=== PATIENT | male | born 1970 | race Caucasian/White ===

== ENCOUNTER 2016-11-27 09:17 | Inpatient (IN) | payer OTHER ==
[2016-11-27 09:58] LABS: Hematocrit 36 % (42-52); Hemoglobin 12.1 g/dl (14.0-18.0); Mean Corpuscular HGB Conc 34 g/dl (31-36); Mean Corpuscular Hemoglobin 31 pg (27-31); Mean Corpuscular Volume 94 fL (80-94); Mean Platelet Volume 10 um3 (7.4-10.4); Red Blood Count 3.85 10^6/ul (4.0-5.4); Red Cell Distribution Width 13 % (10.5-15); White Blood Count 13.2 10^3/ul (3.5-10.8)
[2016-11-27 10:30] LABS: ALT 30 U/L (7-52); AST 64 U/L (13-39); Albumin 4.4 g/dL (3.2-5.2); Alkaline Phosphatase 65 U/L (34-104); BUN/Creatinine Ratio 17.1 (8-20); Blood Urea Nitrogen 24 mg/dL (6-24); CO2 Carbon Dioxide 22 mmol/L (22-32); Calcium 8.7 mg/dL (8.6-10.3); Chloride 87 mmol/L (101-111); EGFR African American 70.8 (>60); EGFR Non-African American 55.1 (>60); Globulin 2.5 g/dL (2-4); Glucose 458 mg/dL (70-100); Potassium 5.6 mmol/L (3.5-5.0); Total Protein 6.9 g/dL (6.4-8.9)
[2016-11-27 10:39] LABS: Acetaminophen < 15 mcg/mL; Alcohol < 10 mg/dL (<10); Salicylate < 2.50 mg/dL (<30)
[2016-11-27 10:41] LABS: Anion Gap 11 mmol/L (2-11); Sodium 120 mmol/L (133-145)
[2016-11-27] MEDS ORDERED: Insulin REGULAR(*) 1 UNITS UNIT IV PUSH ONE (10:46)
[2016-11-27] MEDS ORDERED: NS 0.9% 1000 ML* 1,000 ML IV ONE ×2 (10:47→14:45)
[2016-11-27 10:51] LABS: TSH (Thyroid Stimulating Horm) 1.71 mcIU/mL (0.34-5.60)
[2016-11-27] MEDS: NS 0.9% 1000 ML* 2,000 ML IV ONE ×2 (10:56→11:59)
[2016-11-27 12:34] LABS: Calcium 8.6 mg/dL (8.6-10.3); EGFR Non-African American 62.2 (>60); Globulin 2.5 g/dL (2-4); Potassium 3.9 mmol/L (3.5-5.0); Total Bilirubin 0.5 mg/dL (0.2-1.0); Total Protein 6.5 g/dL (6.4-8.9)
[2016-11-27 15:36] LABS: Urine Bacteria Absent (Absent); Urine Bilirubin Negative (Negative); Urine Glucose 3+(>=500 mg/dL) (Negative); Urine Nitrite Negative (Negative)
[2016-11-27 15:50] LABS: Benzodiazepine Urine Screen None Detected (None Detect)
--- NOTE | 2016-11-27 16:35 | ED ---
Martha Cartwright Alok, scribed for Adithya Anne MD on 11/27/16 at 0932 . Dizziness - HPI Summary HPI Summary: 46 y/o male presents to the ED from [facility] with dizziness and suspected opiate overdose. Pt denies drug use today and states he woke up after sleeping last night with dizziness described as a weakness. Pt is currently slightly dizzy and has no other complaints. Pt denies CP, SOB, and palpitations. PMHx includes DM, HLD and peripheral neuropathy. Pt smokes approximately between 1.5-2 ppd. - History Of Current Complaint Stated Complaint: POSS OVERDOSE Time Seen by Provider: 11/27/16 09:26 Hx Obtained From: Patient Onset/Duration: Still Present Timing: Hours Severity Initially: Moderate Severity Currently: Moderate Character: Weak, Dizzy Aggravating Factor(s): Nothing Alleviating Factor(s): Nothing Associated Signs And Symptoms: Negative: Chest Pain, SOB, Palpitations - Allergies/Home Medications Allergies/Adverse Reactions: Allergies Allergy/AdvReac Type Severity Reaction Status Date / Time Penicillins [PCN] Allergy Hives/Diff. Verified 11/27/16 09:35 Breathing/I tching Home Medications: Home Medications Aspirin EC Low Dose* [Ecotrin EC Low Dose 81 MG*] 81 mg PO DAILY 11/27/16 [ History Confirmed 11/27/16] Atorvastatin* [Lipitor*] 10 mg PO DAILY 11/27/16 [History Confirmed 11/27/16] Gabapentin TAB(NF) [Neurontin 600 mg TAB(NF)] 600 mg PO BID 11/27/16 [History Confirmed 11/27/16] Insulin GLARGINE(*) [Lantus(*)] 22 units SUBCUT BEDTIME 11/27/16 [History Confirmed 11/27/16] Levothyroxine TAB* [Synthroid TAB*] 250 mcg PO DAILY 11/27/16 [History Confirmed 11/27/16] Sitagliptin (NF) [Januvia (NF)] 50 mg PO DAILY 11/27/16 [History Confirmed 11/27] PMH/Surg Hx/FS Hx/Imm Hx Endocrine/Hematology History: Reports: Hx Diabetes Cardiovascular History: Reports: Hx Hypercholesterolemia Neurological History: Reports: Hx Peripheral Neuropathy - Family History Known Family History: Positive: Diabetes - Social History Occupation: Unemployed Hx Tobacco Use: Yes Smoking Status (MU): Heavy Every Day Tobacco Smoker Type: Cigarettes Cigarettes Packs Per Day: 2 Review of Systems Negative: Palpitations, Chest Pain Negative: Shortness Of Breath Neurological: Other - Dizziness Positive: Weakness All Other Systems Reviewed And Are Negative: Yes Physical Exam - Summary Physical Exam Summary: VITAL SIGNS: Reviewed. GENERAL: ~Patient is a well developed and nourished male who is lying comfortable in the stretcher. ~Patient is not in any acute respiratory distress. HEAD AND FACE: Normocephalic EYES: PERRLA, EOMI x 2. EARS: Hearing grossly intact. MOUTH: Oropharynx within normal limits. NECK: Supple, trachea is midline, no adenopathy, no JVD, no carotid bruit. CHEST: Symmetric, no tenderness at palpation LUNGS: Clear to auscultation bilaterally. No wheezing or crackles. CVS: Regular rate and rhythm, S1 and S2 present, no murmurs or gallops appreciated. ABDOMEN: Soft, non-tender. Bowel sounds are normal. No abdominal abnormal pulsations. EXTREMITIES: Full ROM in all major joints, no edema, no cyanosis or clubbing. NEURO: Alert and oriented x 3. No acute neurological deficits. Speech is normal and follows commands. SKIN: Dry and warm Triage Information Reviewed: Yes Vital Signs On Initial Exam: Vital Signs (72 hours) 11/27/16 11/27/16 11/27/16 09:27 09:30 09:33 Temperature 99.5 F Pulse Rate 103 85 Respiratory 17 Rate Blood Pressure 152/72 145/64 145/64 (mmHg) O2 Sat by Pulse 80 97 Oximetry 11/27/16 09:35 Temperature 99.5 F Pulse Rate 92 Respiratory 18 Rate Blood Pressure 145/64 (mmHg) O2 Sat by Pulse 97 Oximetry Vital Signs Reviewed: Yes Diagnostics - Vital Signs Vital Signs Temp Pulse Resp BP Pulse Ox 11/27/16 15:00 12 115/69 11/27/16 14:30 88 27 78/53 89 11/27/16 14:00 18 117/84 11/27/16 13:30 15 116/66 11/27/16 13:00 13 110/70 11/27/16 12:30 11 118/66 11/27/16 12:00 83 13 108/63 95 11/27/16 11:30 86 10 106/62 98 11/27/16 11:00 85 11 117/74 94 11/27/16 10:30 90 14 119/62 91 11/27/16 10:00 86 14 126/76 92 11/27/16 09:35 99.5 F 92 18 145/64 97 11/27/16 09:33 99.5 F 85 17 145/64 97 11/27/16 09:30 103 145/64 80 11/27/16 09:27 152/72 - Laboratory Lab Results: Lab Results 11/27/16 11/27/16 11/27/16 Range/Units 09:41 09:41 09:42 WBC 13.2 H (3.5-10.8) 10^3/ul RBC 3.85 L (4.0-5.4) 10^6/ul Hgb 12.1 L (14.0-18.0) g/dl Hct 36 L (42-52) % MCV 94 (80-94) fL MCH 31 (27-31) pg MCHC 34 (31-36) g/dl RDW 13 (10.5-15) % Plt Count 180 (150-450) 10^3/ul MPV 10 (7.4-10.4) um3 Neut % (Auto) 78.4 (38-83) % Lymph % (Auto) 10.3 L (25-47) % Broome % (Auto) 10.5 H (1-9) % Eos % (Auto) 0.1 (0-6) % Baso % (Auto) 0.7 (0-2) % Absolute Neuts (auto) 10.4 H (1.5-7.7) 10^3/ul Absolute Lymphs (auto) 1.4 (1.0-4.8) 10^3/ul Absolute Monos (auto) 1.4 H (0-0.8) 10^3/ul Absolute Eos (auto) 0 (0-0.6) 10^3/ul Absolute Basos (auto) 0.1 (0-0.2) 10^3/ul Absolute Nucleated RBC 0.01 10^3/ul Nucleated RBC % 0.1 Sodium 120 L (133-145) mmol/L Potassium 5.6 H (3.5-5.0) mmol/L Chloride 87 L (101-111) mmol/L Carbon Dioxide 22 (22-32) mmol/L Anion Gap 11 (2-11) mmol/L BUN 24 (6-24) mg/dL Creatinine 1.40 H (0.67-1.17) mg/dL Est GFR ( Amer) 70.8 (>60) Est GFR (Non-Af Amer) 55.1 (>60) BUN/Creatinine Ratio 17.1 (8-20) Glucose 458 H (70-100) mg/dL POC Glucose (mg/dL) > 444 H* (74-106) mg/dL Calcium 8.7 (8.6-10.3) mg/dL Total Bilirubin 0.50 (0.2-1.0) mg/dL AST 64 H (13-39) U/L ALT 30 (7-52) U/L Alkaline Phosphatase 65 (34-104) U/L Total Protein 6.9 (6.4-8.9) g/dL Albumin 4.4 (3.2-5.2) g/dL Globulin 2.5 (2-4) g/dL Albumin/Globulin Ratio 1.8 (1-3) TSH 1.71 (0.34-5.60) mcIU/mL Urine Color Urine Appearance Urine pH (5-9) Ur Specific Blythe (1.010-1.030) Urine Protein (Negative) Urine Ketones (Negative) Urine Blood (Negative) Urine Nitrate (Negative) Urine Bilirubin (Negative) Urine Urobilinogen (Negative) Ur Leukocyte Esterase (Negative) Urine WBC (Auto) (Absent) Urine RBC (Auto) (Absent) Urine Bacteria (Absent) Hyaline Casts (Absent) Urine Glucose (Negative) Salicylates < 2.50 (<30) mg/dL Urine Opiates Screen (None Detect) Acetaminophen < 15 mcg/mL Ur Barbiturates Screen (None Detect) Ur Phencyclidine Scrn (None Detect) Ur Amphetamines Screen (None Detect) U Benzodiazepines Scrn (None Detect) Urine Cocaine Screen (None Detect) U Cannabinoids Screen (None Detect) Serum Alcohol < 10 (<10) mg/dL 11/27/16 11/27/16 11/27/16 Range/Units 12:08 15:15 15:15 WBC (3.5-10.8) 10^3/ul RBC (4.0-5.4) 10^6/ul Hgb (14.0-18.0) g/dl Hct (42-52) % MCV (80-94) fL MCH (27-31) pg MCHC (31-36) g/dl RDW (10.5-15) % Plt Count (150-450) 10^3/ul MPV (7.4-10.4) um3 Neut % (Auto) (38-83) % Lymph % (Auto) (25-47) % Broome % (Auto) (1-9) % Eos % (Auto) (0-6) % Baso % (Auto) (0-2) % Absolute Neuts (auto) (1.5-7.7) 10^3/ul Absolute Lymphs (auto) (1.0-4.8) 10^3/ul Absolute Monos (auto) (0-0.8) 10^3/ul Absolute Eos (auto) (0-0.6) 10^3/ul Absolute Basos (auto) (0-0.2) 10^3/ul Absolute Nucleated RBC 10^3/ul Nucleated RBC % Sodium 126 L (133-145) mmol/L Potassium 3.9 D (3.5-5.0) mmol/L Chloride 95 L (101-111) mmol/L Carbon Dioxide 25 (22-32) mmol/L Anion Gap 6 (2-11) mmol/L BUN 24 (6-24) mg/dL Creatinine 1.26 H (0.67-1.17) mg/dL Est GFR ( Amer) 80.0 (>60) Est GFR (Non-Af Amer) 62.2 (>60) BUN/Creatinine Ratio 19.0 (8-20) Glucose 238 H (70-100) mg/dL POC Glucose (mg/dL) (74-106) mg/dL Calcium 8.6 (8.6-10.3) mg/dL Total Bilirubin 0.50 (0.2-1.0) mg/dL AST 72 H (13-39) U/L ALT 29 (7-52) U/L Alkaline Phosphatase 61 (34-104) U/L Total Protein 6.5 (6.4-8.9) g/dL Albumin 4.0 (3.2-5.2) g/dL Globulin 2.5 (2-4) g/dL Albumin/Globulin Ratio 1.6 (1-3) TSH (0.34-5.60) mcIU/mL Urine Color Yellow Urine Appearance Clear Urine pH 6.0 (5-9) Ur Specific Blythe 1.008 L (1.010-1.030) Urine Protein Negative (Negative) Urine Ketones 1+ H (Negative) Urine Blood 1+ H (Negative) Urine Nitrate Negative (Negative) Urine Bilirubin Negative (Negative) Urine Urobilinogen Negative (Negative) Ur Leukocyte Esterase Negative (Negative) Urine WBC (Auto) Trace(0-5/hpf) (Absent) Urine RBC (Auto) Trace(0-2/hpf) (Absent) Urine Bacteria Absent (Absent) Hyaline Casts Present H (Absent) Urine Glucose 3+(>=500 mg/dl) H (Negative) Salicylates (<30) mg/dL Urine Opiates Screen None detected (None Detect) Acetaminophen mcg/mL Ur Barbiturates Screen None detected (None Detect) Ur Phencyclidine Scrn None detected (None Detect) Ur Amphetamines Screen None detected (None Detect) U Benzodiazepines Scrn None detected (None Detect) Urine Cocaine Screen None detected (None Detect) U Cannabinoids Screen None detected (None Detect) Serum Alcohol (<10) mg/dL Result Diagrams: 11/27/16 09:41 11/27/16 12:08 Lab Statement: Any lab studies that have been ordered have been reviewed, and results considered in the medical decision making process. - EKG 0935 Cardiac Rate: NL EKG Rhythm: Sinus Rhythm - [address] Segment: Normal Re-Evaluation - Re-Evaluation First Eval Re-Evaluation Time: 13:11 Dizzy Course/Dx - Course Course Of Treatment: 46 y/o male presents to the ED from [facility] with dizziness and suspected opiate overdose. Pt denies drug use today and states he woke up after sleeping last night with dizziness described as a weakness. Pt is currently slightly dizzy and has no other complaints. Pt denies CP, SOB, and palpitations. PMHx includes DM, HLD and peripheral neuropathy. Pt smokes approximately between 1.5-2 ppd. Assessment/Plan: Blood work nml except WBC 13.2 H, slight anemia, sodium 120 L, potassium 5.6, anion gap 11, carbon dioxide 22, glucose 458 H consistent with hypoglycemia. Urine was negative for UTI. Toxicology was negative. EKG NSR 86 bpm. Pt was hydrated with 3 L IV fluids. Since pt was not able to urinate we did a bladder scanned pt and he had more than one L or urine. Vera catheter was placed and expresed 2000 ccs. CMP repeat showed new sodium 126 L, potassium 3.9 L, glucose 238 H, which is much improved. Due to dizziness and near syncope, discussed case with Dr. Grayson (Hospitalist) who accepts pt. Pt head CT canceled since neurology intact. Pt has no focal deficits. Pt is hemodynamically stable and alert and oriented x 3. - Diagnoses Differential Diagnosis/HQI/PQRI: Dysrhythmia, Seizure, Transient Ischemic Attack , Vasovagal Reaction, Other - Narcotis overdose. Provider Diagnoses: Near syncope, Diabetes mellitus with hyperglycemia, Urinary retention - Provider Notifications Discussed Care Of Patient with: Dr. Grayson (Hospitalist) @ 1600 - will admit pt. Discharge - Discharge Plan Condition: Stable Disposition: ADMITTED TO [facility] documentation as recorded by the Martha ma Alok accurately reflects the service I personally performed and the decisions made by , Adithya Anne MD.
[2016-11-27] MEDS ORDERED: Ondansetron INJ* 2 MG/ML VIAL IV PRN (17:08)
[2016-11-27] MEDS ORDERED: Dextrose 50% Syringe 50 ML* 25 GM/50 ML SYRINGE IV PUSH PRN (17:08)
--- NOTE | 2016-11-27 18:35 | RAD ---
Indication: Syncope. Tobacco use. Generalized weakness. Comparison: None. Technique: Upright AP 1816 hours Report: Low lung volumes and moderate elevation of the RIGHT hemidiaphragm with associated basilar atelectasis including a confluent region of linear atelectasis at the RIGHT lung base. Negative for pleural effusion or pneumothorax. Negative for cardiomegaly. While low lung volumes limits assessment there is no gross abnormality of the central pulmonary vasculature or mediastinal contours. IMPRESSION: Low lung volumes and moderate RIGHT hemidiaphragm elevation with associated basilar atelectasis.
--- NOTE | 2016-11-27 19:32 | RAD ---
Indication: Altered mental status. Uncontrolled diabetes. Comparison: None. Technique: Noncontrast CT vertex of skull through foramen magnum. Report: 2.7 cm AP by 1.2 cm transverse region of encephalomalacia at the anterior pole of the LEFT temporal lobe is consistent with sequela of a previous infarct. No additional region of nichols matter white matter obscuration. Negative for intra or extra-axial hemorrhage or mass effect. Unremarkable cerebral sulci, ventricles, and basal cisterns. Unremarkable orbital contents. Moderate mucosal thickening at the maxillary sinuses. Negative for fluid levels within the incompletely visualized maxillary sinuses. Retained secretions at the RIGHT frontoethmoidal recess. Clear mastoid air spaces. No suspicious lesion of the calvarium or skull base. Mild LEFT frontal scalp swelling. IMPRESSION: 1. No acute intracranial process evident. 2. 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 3. Mucosal thickening at the maxillary sinuses and RIGHT frontoethmoidal recess without compelling definitive stigmata of acute sinusitis. 4. Mild LEFT anterior scalp swelling.
[2016-11-27] MEDS: Gabapentin CAP(*) 300 MG PO SCH (20:13)
[2016-11-27] MEDS: Insulin GLARGINE(*) 1 UNITS UNIT SUBCUT SCH (20:13)
[2016-11-27] MEDS: Heparin VIAL(*) 5000 UNITS/ML VIAL (FIVE THOUSAND) SUBCUT SCH (21:24)
[2016-11-27] MEDS: Acetaminophen TAB* 325 MG PO PRN (22:27)
--- NOTE | 2016-11-27 23:36 | HP ---
HISTORY AND PHYSICAL: DATE OF ADMISSION: 11/27/16 PRIMARY CARE PROVIDER: Madison Gill. ATTENDING PHYSICIAN WHILE IN THE HOSPITAL: Akila Knutson MD *(report dictated by Owen Estes NP) CHIEF COMPLAINT: Altered mental status, question of syncope. HISTORY OF PRESENT ILLNESS: Mr. Bryant is a 46-year-old male patient. He has a history of type 1 diabetes, hypothyroidism, hyperlipidemia, and neuropathy. He comes in today. He tells me the last thing he remembers [facility] and he was giving a sample because they were watching his glucose in his urine is what he told me. He gave the sample and then he says he went back to his cell and he thinks he lied down and fell asleep. The next thing he knew he was in the hospital ER in the stretcher. He denied having any recent chest pain or any shortness of breath. No fevers or chills. He denied taking any medications or any illicit drugs. He says that he does not recall being given Narcan in the [facility] and he does not recall being trying to be awoken up by the [facility] nurses. He states he has not been sick recently. Denies having any fevers or chills and he says he does not think that he was given anything intentionally either. He says he has been taking his insulin as prescribed. He did note that his sugars were running in the 400 to 500 range today and he says he is a type 1 diabetic and there were no reports of seizure activity on the nursing report from [facility]. He came in to the hospital, was evaluated by Dr. Anne. There was concern that he may have taken illicit drugs ; however, his urine toxicology screen was negative. Because of the question of his altered mental status and the fact that he may have syncopized or even had a seizure, we were asked to evaluate for admission. PAST MEDICAL HISTORY: Significant for: 1. Type 1 diabetes. 2. Hypothyroid. 3. Neuropathy. 4. Hyperlipidemia. PAST SURGICAL HISTORY: Denied, but he did apparently tell nursing staff here that he had a stent placed. When asking him about this, he does not remember where it was performed and he does not remember if it was in his heart or in his lungs. HOME MEDICATIONS: According to the [facility] report includes: 1. Januvia 50 mg daily. 2. Synthroid 250 mcg p.o. daily. 3. Lantus 22 units subcu at bedtime. 4. Gabapentin 600 mg p.o. b.i.d. 5. Lipitor 10 mg daily. 6. Aspirin 81 mg daily. 7. He is also on an insulin sliding scale. ALLERGIES TO MEDICATIONS: Include PENICILLIN. FAMILY HISTORY: Reviewed and noncontributory. SOCIAL HISTORY: He does state that he smokes about 2 packs a day. He denies any alcohol use. He denies any recreational drug abuse. He does reside at [facility]. REVIEW OF SYSTEMS: There is no documented fever. He denied having any significant weight change. There was no double vision. He denies having any ear discharge. There is no rhinorrhea. No sore throat. No thyroid enlargement. Denied having any chest pain. No orthopnea. No nocturnal dyspnea. There is no abdominal pain. No nausea. No vomiting. No dysuria. No frequency. There is a question of loss of consciousness and a question of possible seizure. Review of 14 systems completed, all others negative. PHYSICAL EXAMINATION GENERAL: At this time, Mr. Bryant is a 46-year-old male patient. He is sitting in the ER stretcher. He does not appear to be in any acute distress. VITAL SIGNS: Blood pressure 115/69 with a pulse of 81, respirations 12, O2 sat 95%, and temperature 99.5. HEENT: Head is atraumatic and normocephalic. Eyes: EOMs are intact. Sclerae were anicteric and not pale. NECK: Supple. Throat: Oral mucosa appears to be moist. No oropharyngeal erythema. LUNGS: Clear to auscultation. No wheezes, rales, or rhonchi. HEART: Sounds S1, S2. Regular rate and rhythm. No murmurs, rubs, or gallops. ABDOMEN: Soft, flat, and nontender. Bowel sounds present. EXTREMITIES: Pulses were 2+ throughout. He is able to move all 4 extremities with 5/5 strength. NEUROLOGIC: He is awake, he is alert, and he is oriented x3. His speech is clear. His tongue is midline. His balance wheel screw hole tapper were equal. He had no gross focal deficits. SKIN: Grossly intact. DIAGNOSTIC STUDIES/LAB DATA: Today reveal WBC of 13.2, RBC of 3.85, hemoglobin 12.1, hematocrit of 36, and platelet count of 180. His sodium initially was 120, it is now 126; potassium was initially 5.6, now 3.9; his chloride was 87, now 95; his bicarb was 25; BUN 24; creatinine initially 1.4, now 1.26; and initial glucose was 458, now it is 238. Total bili 0.5, AST 72, ALT 29, and alk phos 61. Albumin 4.0. Urine was obtained, it showed 1+ ketone , 1+ blood, and 3+ glucose. Toxicology initially was negative. He had an EKG obtained today, which showed a normal sinus rhythm with a rate of 86. No ST elevations were noted. No previous for comparison. Old medical records were reviewed. ASSESSMENT AND PLAN: Mr. Bryant is a 46-year-old male patient coming into the ER today with complaints of altered mental status, question of syncope versus seizure. He will be admitted under observation status for: 1. Altered mental status: Etiology is unclear. He has a period of time where he does not recall what happened. Question if he did take a medication or illicit substance that may have caused him to do this; however, I do think he does have risk factors for cardiac disease. He warrants telemetry. CT of the brain, EEG, echo, and orthostatics to follow for workup. I also think that we will send off a comprehensive drug urine screen as well and I will get a chest x -ray. 2. Leukocytosis: Probably secondary to a leukemoid reaction. If he spikes a fever, I would panculture him. For the time being, no antibiotics. We will monitor. 3. Hyponatremia: This is probably related to his pseudohyponatremia related to the sugars and dehydration. We certainly will hydrate him and follow. His sodium has come up to 126 now and improved with sugars being corrected and we will continue to monitor this and follow them. 4. Acute renal failure: Again, probably related to dehydration and possibly urinary retention as the patient did have about 2 L in his bladder. A Vera was placed and it has been resolved. 5. Urinary retention: Etiology is unclear. It certainly could be from a neurogenic bladder related to uncontrolled diabetes or possible if he did take an illicit substance that may have caused urinary retention. Vera was placed. We will continue this and try voiding trials tomorrow. 6. Diabetes: He will be on a lispro sliding scale and Lantus. 7. Hypothyroidism: Continue Synthroid. 8. Hyperlipidemia: Continue medications as prescribed. 9. Neuropathy: Continue his gabapentin. 10. DVT prophylaxis: He will be placed on heparin subcu. 11. Code status: Full code. 12. Fluids, electrolytes, and nutrition: He can have a consistent carbohydrate diet. TIME SPENT: Time spent on the admission was 60 minutes; greater than half the time was spent [id number] with the patient obtaining my history and physical, the other half time is spent going over the plan of care with the patient and implementing plan of care. I discussed the plan of care with my attending, Dr. Knutson. She is in agreement. OWEN ESTES NP CC: [facility]* [id number]/CPS #: [id number]
[2016-11-28] MEDS: Heparin VIAL(*) 5000 UNITS/ML VIAL (FIVE THOUSAND) SUBCUT SCH ×3 (05:09→21:28)
[2016-11-28 06:10] LABS: Hematocrit 31 % (42-52); Hemoglobin 10.4 g/dl (14.0-18.0); Mean Corpuscular HGB Conc 34 g/dl (31-36); Mean Corpuscular Hemoglobin 32 pg (27-31); Mean Corpuscular Volume 94 fL (80-94); Mean Platelet Volume 10 um3 (7.4-10.4); Red Cell Distribution Width 14 % (10.5-15); White Blood Count 10.3 10^3/ul (3.5-10.8)
[2016-11-28 06:24] LABS: BUN/Creatinine Ratio 14.3 (8-20); Calcium 8.6 mg/dL (8.6-10.3); EGFR African American 127.7 (>60); EGFR Non-African American 99.3 (>60)
[2016-11-28] MEDS: Insulin LISPRO* 1 UNITS UNIT SUBCUT SCH ×3 (07:39→17:38)
[2016-11-28] MEDS: Aspirin EC Low Dose* 81 MG TAB.EC PO SCH (10:49)
[2016-11-28] MEDS: Levothyroxine TAB* 50 MCG TAB PO SCH (10:49)
[2016-11-28] MEDS: Gabapentin CAP(*) 300 MG PO SCH ×2 (10:49→21:26)
[2016-11-28] MEDS: Atorvastatin* 10 MG TAB PO SCH (10:49)
[2016-11-28] MEDS: Acetaminophen TAB* 325 MG PO PRN (12:03)
--- NOTE | 2016-11-28 13:09 | ECHO ---
Patient: COLT SOSA [id number] [facility] Rec#: [id number] : 1970 Date: 11/28/2016 Age: 46y Height: 177.8 cm / 70.0 in Weight: 81.7 kg / 180.1 lbs Sex: M BSA: 2 Room#: [facility] Admit Date#: 11/27/2016 Type: Inpatient Referring: Owen Estes NP Reading: Ladarius Patino MD Management Tech: Nasrin Mcclelland RN RDCS CC: Luh Otto NP Transthoracic Echocardiogram Indication: Syncope BP: 105/41 HR: 77 Rhythm: NSR Findings History: DM, HLD, hypothyroidism, smoker, neuropathy Technical Comments: The study quality is fair. The study is technically limited due to the patient's smoking history. Completed at 1210. Left Ventricle: The left ventricular chamber size is normal. Global left ventricular wall motion and contractility are within normal limits. There is normal left ventricular systolic function. The estimated ejection fraction is 60-65%. Normal left ventricular diastolic filling is observed. Left Atrium: The left atrial chamber size is normal. Right Ventricle: The right ventricular cavity size is normal. The right ventricular global systolic function is normal. Right Atrium: The right atrial cavity size is normal. A prominent eustachian valve is noted in the right atrium. There is evidence of an atrial septal aneurysm. Aortic Valve: The aortic valve appears bicuspid. There is no evidence of aortic regurgitation. There is no evidence of aortic stenosis. The highest aortic valve velocity was obtained with the standard probe from the A3C view. Mitral Valve: The mitral valve leaflets are mildly thickened. There is a trace of mitral regurgitation. Tricuspid Valve: The tricuspid valve leaflets are normal. There is trace tricuspid regurgitation. There is evidence of moderate pulmonary hypertension. Pulmonic Valve: The pulmonic valve appears normal. There is a trace pulmonic regurgitation. There is no pulmonic stenosis. Pericardium: There is no significant pericardial effusion. A pericardial fat pad is visualized. Aorta: There is no dilatation of the ascending aorta. There is no dilatation of the aortic arch. There is no dilation of the aortic root. Pulmonary Artery: The main pulmonary artery appears normal. Venous: The venous system is not well visualized. The inferior vena cava is not visualized. Conclusions There is normal left ventricular systolic function. The estimated ejection fraction is 60-65%. Global left ventricular wall motion and contractility are within normal limits. Normal cardiac chamber sizes. The aortic valve appears bicuspid. There is no evidence of aortic stenosis. There is no evidence of aortic stenosis. There is evidence of moderate pulmonary hypertension. There is no prior echocardiogram available to compare with at this time. Measurements Name Value Normal Range RVDdMajor (2D) 3.6 cm (2.2 - 4.4) RAd ISD 4CH 4.6 cm (3.4 - 4.9) RA (A4C)W 4 cm (2.9 - 4.6) IVSd (2D) 1.2 cm (0.6 - 1) LVPWd (2D) 1.1 cm (0.6 - 1) LVIDd (2D) 4.8 cm (3.6 - 5.4) LVIDs (2D) 2.8 cm - LV FS (2D) 42 % (25 - 45) Aortic Annulus 2 cm (1.4 - 2.6) Ao root diameter (2D) 2.8 cm (2.1 - 3.5) Ascending Ao 3.4 cm (2.1 - 3.4) Aortic arch 2.5 cm (1.8 - 3.4) LA dimension (AP) 2D 3.2 cm (2.3 - 3.8) LAd ISD 4CH 5.2 cm (2.9 - 5.3) LA ISD 4CH W 4.6 cm (2.5 - 4.5) Aortic root diameter (2D1 cm/m2 - Name Value Normal Range LA ESV SP 4CH (A/L) 66 ml - LA ESV SP 2CH (A/L) 43 ml - LA ESV BP (A/L) 56 ml - LA ESV BP (A/L) index 28 ml/m2 - LA ESV SP 4CH (MOD) 63 ml - LA ESV SP 2CH (MOD) 41 ml - Name Value Normal Range MV E-wave Vmax 1.3 m/sec - MV deceleration time 200 msec - MV A-wave Vmax 0.67 m/sec - MV E:A ratio 1.9 ratio - LV septal e' Vmax 0.13 m/sec - LV lateral e' Vmax 0.19 m/sec - LV E:e' septal ratio 10 ratio - LV E:e' lateral ratio 6.8 ratio - Name Value Normal Range AV Vmax 1.8 m/sec - AV VTI 35.1 cm - AV peak gradient 14 mmHg - AV mean gradient 7 mmHg - LVOT diameter 2 cm - LVOT Vmax 1.1 m/sec - LVOT VTI 21.1 cm - LVOT peak gradient 5 mmHg - LVOT mean gradient 3 mmHg - DOI (VTI) 0.6 ratio - DOI (Vmax) 0.6 ratio - SV LVOT 66.3 ml - KAYLA Vmax 0.86 m/sec - Name Value Normal Range TR Vmax 3.1 m/sec - TR peak gradient 38 mmHg - RAP 8 mmHg - RVSP 46 mmHg - Name Value Normal Range PV Vmax 1 m/sec -
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
[2016-11-28] MEDS: PARoxetine HCL TAB* 20 MG PO SCH (16:59)
[2016-11-28] MEDS ORDERED: CloZAPine TAB* 25 MG TAB PO SCH (21:00)
[2016-11-28] MEDS ORDERED: CloZAPine TAB* 100 MG TAB PO SCH (21:00)
[2016-11-28] MEDS: Divalproex DR TAB(*) 250 MG PO SCH (21:26)
[2016-11-28] MEDS: Divalproex DR TAB(*) 500 MG PO SCH (21:27)
[2016-11-28] MEDS: Insulin GLARGINE(*) 1 UNITS UNIT SUBCUT SCH (21:28)
--- NOTE | 2016-11-29 | PN ---
Progress Note - Progress Note Note: Called for urinary retention >300, patient c/o that he can't urinate. Also noted to be febrile, with sats in low 90's and wheeze on exam per RN. Will straight cath, send U/A, CXR and follow up. Patient had Blood cultures drawn earlier today.
[2016-11-29] MEDS: Acetaminophen TAB* 325 MG PO PRN ×2 (00:30→18:03)
[2016-11-29 00:55] LABS: Urine Bacteria Absent (Absent); Urine Bilirubin Negative (Negative); Urine Glucose 1+(50 mg/dL) (Negative); Urine Nitrite Negative (Negative)
--- NOTE | 2016-11-29 02:03 | EEG ---
ELECTROENCEPHALOGRAPHY: DATE OF STUDY: 11/28/16 LOCATION: He is an inpatient in room 442. REFERRING PROVIDER: Owen Estes NP CLINICAL PROBLEM: Episode of unresponsive. MEDICATIONS: Include: 1. Zofran. 2. Lantus insulin. 3. Gabapentin. 4. Synthroid. 5. Lipitor. 6. Humalog insulin. REPORT: This 16-channel EEG is remarkable for background activity consisting of diffuse slow activity most prominent centrally and parasagittally. Lower abundant theta activity is seen bitemporally and posteriorly. The patient is clinically asleep and snoring. The patient wakes intermittently and opens eyes and blinks and scratches his forehead with some movement artifact. They are in the more awake portions, slower activity subsides and a posterior alpha rhythm is briefly seen at about 8 cycles per second. At times, rudimentary sleep spindles are noted, but most of the study is in drowsiness and light sleep and occasionally wakefulness. Activation procedures are not attempted. There are no focal, lateralized, or epileptiform abnormalities. CLINICAL IMPRESSION: Probably normal EEG with generalized slowing during sleep and occasionally brief periods of normal wakefulness. There are no epileptiform features to this recording. If an encephalopathy is a consideration, then repeat tracing when the patient is more awake and alert might be helpful. [id number]/[facility] #: [id number] [facility] HOSPITALMagy
[2016-11-29] MEDS: Heparin VIAL(*) 5000 UNITS/ML VIAL (FIVE THOUSAND) SUBCUT SCH ×3 (06:21→21:33)
--- NOTE | 2016-11-29 07:08 | RAD ---
INDICATION: Hypoxia COMPARISON: Chest x-ray November 28, 2015 TECHNIQUE: PA and lateral dual-energy views were obtained. FINDINGS: Bones/Soft Tissues: There are no acute bony findings. Cardiomediastinal: The cardiomediastinal silhouette is normal. Lungs: There is bilateral interstitial and alveolar change likely related to interstitial and alveolar edema. Suggest follow-up. Pleura: There are no pleural effusions. Other: None IMPRESSION: SUSPECT EVOLVING INTERSTITIAL AND ALVEOLAR EDEMA. RECOMMEND FOLLOW-UP
[2016-11-29] MEDS: Insulin LISPRO* 1 UNITS UNIT SUBCUT SCH ×3 (08:18→16:50)
[2016-11-29] MEDS: Aspirin EC Low Dose* 81 MG TAB.EC PO SCH ×2 (08:19→10:42)
[2016-11-29] MEDS: PARoxetine HCL TAB* 20 MG PO SCH ×2 (08:19→10:43)
[2016-11-29] MEDS: Gabapentin CAP(*) 300 MG PO SCH ×2 (08:19→10:46)
[2016-11-29] MEDS: Divalproex DR TAB(*) 500 MG PO SCH ×2 (08:20→10:46)
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
[2016-11-29 10:09] LABS: FIO2 3
[2016-11-29 10:12] LABS: PCO2 Arterial 45 mmHg (35-45)
[2016-11-29] MEDS: Atorvastatin* 10 MG TAB PO SCH (10:43)
[2016-11-29] MEDS: Levothyroxine TAB* 50 MCG TAB PO SCH (10:43)
[2016-11-29] MEDS: Divalproex DR TAB(*) 250 MG PO SCH (10:46)
--- NOTE | 2016-11-29 10:47 | RAD ---
INDICATION: Abdominal pain with distention COMPARISON: None TECHNIQUE: A single view of the abdomen is submitted. FINDINGS: Bones: There are no acute bony findings. Soft tissues: The soft tissues appear normal. The psoas margins are sharp. Bowel gas pattern: No obstruction. Moderate interstitial Calcifications: There are no abnormal calcifications. Other: None IMPRESSION: MODERATE RETAINED STOOL.
--- NOTE | 2016-11-29 13:35 | PN ---
Hospitalist Progress Note Procedure Note Date: 11/29/2016 Time: 1300 Location: [facility] 442-2 Procedure: Lumbar Puncture Consent Obtained: No, patient altered, proceeded without consent due to medical necessity Time Out Held: Yes Indication: Concern for meningitis Procedure: Patient placed in position on right side. L3/4 disc space palpated and marked. Area prepped with iodine, draped and procedure started in sterile fashion. 4 cc of 1% Lidocaine administered subcutaneously and then deeper into the intervertebral space. Some mild bleeding occurred but stopped after one minute with gauze and compression. Spinal needle inserted into L3/4 disc space, clear CSF fluid began to drain from the needle and was collected in 4 separate tubes. 12 cc of CSF was collected in total and sent to the lab. The spinal needle was removed with no further bleeding. A band-aid was placed over the site. EBL: 2 cc Patient tolerated procedure well. Will lay flat for 30 minutes.
[2016-11-29 13:48] LABS: CSF Glucose 116 mg/dL (40-70)
[2016-11-29 14:23] LABS: BUN/Creatinine Ratio 13.4 (8-20); Calcium 8.7 mg/dL (8.6-10.3); EGFR African American 165.7 (>60); EGFR Non-African American 128.9 (>60); Potassium 4.1 mmol/L (3.5-5.0)
[2016-11-29] MEDS: LACTULOSE* 30 ML UDC PO SCH ×2 (14:24→20:29)
[2016-11-29 14:35] LABS: BF RBC Count #1 4; BF WBC Count #1 5; Body Fluid Appearance Clear
[2016-11-29 14:39] LABS: BF WBC Count #2 3
[2016-11-29 14:40] LABS: BF RBC Count #2 3; Body Fluid WBC 4 /mcL; RBC counts within 6%? Yes; WBC counts within 15%? Yes
[2016-11-29 14:48] LABS: Folate 15.91 ng/mL (>3.99)
[2016-11-29 15:20] LABS: Body Fluid Total Cells Counted 100
[2016-11-29] MEDS ORDERED: Iodixanol* (CONTRAST) 320 MG/ML 100 ML SDV IV ONE (18:06)
[2016-11-29] MEDS ORDERED: Iohexol 300* (CONTRAST) 10 ML SDV IV ONE (18:07)
[2016-11-29] MEDS ORDERED: Iohexol 300* (CONTRAST) 10 ML SDV IV SCH (19:00)
[2016-11-29] MEDS ORDERED: Iodixanol* (CONTRAST) 320 MG/ML 100 ML SDV IV SCH (19:00)
--- NOTE | 2016-11-29 19:10 | RAD ---
INDICATION: Fever COMPARISON: CT brain November 27, 2016 TECHNIQUE: Axial source images were acquired from the skull base to the vertex. The examination was performed following the administration of 75 mL Visipaque 320 FINDINGS: Ventricles/sulci: The ventricles and cisterns are normal in size and configuration for age. Brain parenchyma: There is no acute focal parenchymal finding, evidence of intracranial mass, or intracranial mass effect. There is encephalomalacia in the left temporal and parietal lobes. There is no abnormal enhancement. Intracranial hemorrhage:None. Extra-axial spaces: There are no abnormal extra axial fluid collections or evidence of extra-axial mass. Calvarium: There is no calvarial fracture or other calvarial abnormality. Scalp: There is no evidence of scalp or extracalvarial soft tissue abnormality. Paranasal sinuses/mastoid: There is the sphenoid, bilateral ethmoid, and bilateral maxillary antral mucosal thickening without acute air-fluid level. Other: None. IMPRESSION: Encephalomalacia left temporal and parietal lobes. No abnormal enhancement. Findings of chronic sinusitis.
[2016-11-29] MEDS: Insulin GLARGINE(*) 1 UNITS UNIT SUBCUT SCH (20:29)
[2016-11-30] MEDS: Heparin VIAL(*) 5000 UNITS/ML VIAL (FIVE THOUSAND) SUBCUT SCH ×3 (05:26→21:38)
[2016-11-30] MEDS: Acetaminophen TAB* 325 MG PO PRN (05:30)
[2016-11-30] MEDS: LACTULOSE* 30 ML UDC PO SCH ×3 (10:03→21:38)
[2016-11-30] MEDS: PARoxetine HCL TAB* 20 MG PO SCH (10:09)
[2016-11-30] MEDS: Levothyroxine TAB* 50 MCG TAB PO SCH (10:09)
[2016-11-30] MEDS: Aspirin EC Low Dose* 81 MG TAB.EC PO SCH (10:10)
[2016-11-30] MEDS: Atorvastatin* 10 MG TAB PO SCH (10:10)
[2016-11-30] MEDS: Insulin LISPRO* 1 UNITS UNIT SUBCUT SCH ×3 (10:10→17:10)
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
--- NOTE | 2016-11-30 15:07 | PN ---
Subjective Date of Service: 11/30/16 Interval History: pt "feels better". Poor historian. denies pain. 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 Family History: Unchanged from Admission Social History: Unchanged from Admission Past Medical History: Unchanged from Admission Objective Active Medications: Acetaminophen (Tylenol Tab*) 650 mg PO Q4H PRN PRN Reason: FEVER/PAIN Last Admin: 11/30/16 05:30 Dose: 650 mg Aspirin (Aspirin Ec Low Dose*) 81 mg PO DAILY [facility] Last Admin: 11/30/16 10:10 Dose: 81 mg Atorvastatin Calcium (Lipitor*) 10 mg PO DAILY [facility] Last Admin: 11/30/16 10:10 Dose: 10 mg Dextrose (D50w Syringe 50 Ml*) 12.5 gm IV PUSH .FOR FS < 60 - SS PRN PRN Reason: FS < 60 Heparin Sodium (Porcine) (Heparin Vial(*)) 5,000 units SUBCUT Q8HR [facility] Last Admin: 11/30/16 13:23 Dose: 5,000 units Insulin Glargine (Lantus(*)) 22 units SUBCUT BEDTIME [facility] Last Admin: 11/29/16 20:29 Dose: 22 unit Insulin Human Lispro (Humalog*) 0 units SUBCUT AC [facility] PRN Reason: Protocol Last Admin: 11/30/16 12:39 Dose: 6 units Iodixanol (Visipaque* 320 (Contrast)) 75 ml IV ONCE [facility] Stop: 12/01/16 18:05 Lactulose (Lactulose*) 30 ml PO TID [facility] Last Admin: 11/30/16 13:23 Dose: 30 ml Levothyroxine Sodium (Synthroid Tab*) 250 mcg PO DAILY [facility] Last Admin: 11/30/16 10:09 Dose: 250 mcg Ondansetron HCl (Zofran Inj*) 4 mg IV Q6H PRN PRN Reason: NAUSEA Paroxetine HCl (Paxil Tab*) 60 mg PO QAM [facility] Last Admin: 11/30/16 10:09 Dose: 60 mg Vital Signs 11/29/16 11/29/16 11/29/16 15:18 16:54 20:00 Temperature 99.3 F 100.5 F Pulse Rate 80 Respiratory 16 17 Rate Blood Pressure 111/67 (mmHg) O2 Sat by Pulse 99 94 Oximetry 11/30/16 11/30/16 11/30/16 01:15 05:32 06:34 Temperature 100.4 F 102 F 101 F Pulse Rate 79 Respiratory 20 Rate Blood Pressure 113/66 (mmHg) O2 Sat by Pulse 91 Oximetry 11/30/16 11/30/16 11/30/16 07:05 07:34 07:53 Temperature 98 F 97.4 F Pulse Rate 84 Respiratory 16 16 Rate Blood Pressure 112/66 (mmHg) O2 Sat by Pulse 94 Oximetry Appearance: 46 yo M in nAD, AAOx2, poor historian Eyes: No Scleral Icterus, PERRLA Ears/Nose/Mouth/Throat: NL Teeth, Lips, Gums, Clear Oropharnyx, Mucous Membranes Moist Neck: NL Appearance and Movements; NL JVP, Trachea Midline Respiratory: Symmetrical Chest Expansion and Respiratory Effort, Clear to Auscultation Cardiovascular: NL Sounds; No Murmurs; No JVD, RRR Abdominal: NL Sounds; No Tenderness; No Distention Lymphatic: No Cervical Adenopathy Extremities: No Edema, No Clubbing, Cyanosis Skin: No Rash or Ulcers, No Nodules or Sclerosis Neurological: - - right sided weakness at 4+/5 in R LE. Mild flattening of r naso-labial fold. Result Diagrams: 11/28/16 05:25 11/29/16 10:07 Additional Lab and Data: Lab Results 11/27/16 11/27/16 11/27/16 Range/Units 09:41 09:41 09:42 WBC 13.2 H (3.5-10.8) 10^3/ul RBC 3.85 L (4.0-5.4) 10^6/ul Hgb 12.1 L (14.0-18.0) g/dl Hct 36 L (42-52) % MCV 94 (80-94) fL MCH 31 (27-31) pg MCHC 34 (31-36) g/dl RDW 13 (10.5-15) % Plt Count 180 (150-450) 10^3/ul MPV 10 (7.4-10.4) um3 Neut % (Auto) 78.4 (38-83) % Lymph % (Auto) 10.3 L (25-47) % [place] % (Auto) 10.5 H (1-9) % Eos % (Auto) 0.1 (0-6) % Baso % (Auto) 0.7 (0-2) % Absolute Neuts (auto) 10.4 H (1.5-7.7) 10^3/ul Absolute Lymphs (auto) 1.4 (1.0-4.8) 10^3/ul Absolute Monos (auto) 1.4 H (0-0.8) 10^3/ul Absolute Eos (auto) 0 (0-0.6) 10^3/ul Absolute Basos (auto) 0.1 (0-0.2) 10^3/ul Absolute Nucleated RBC 0.01 10^3/ul Nucleated RBC % 0.1 Sodium 120 L (133-145) mmol/L Potassium 5.6 H (3.5-5.0) mmol/L Chloride 87 L (101-111) mmol/L Carbon Dioxide 22 (22-32) mmol/L Anion Gap 11 (2-11) mmol/L BUN 24 (6-24) mg/dL Creatinine 1.40 H (0.67-1.17) mg/dL Est GFR ( Amer) 70.8 (>60) Est GFR (Non-Af Amer) 55.1 (>60) BUN/Creatinine Ratio 17.1 (8-20) Glucose 458 H (70-100) mg/dL POC Glucose (mg/dL) > 444 H* (74-106) mg/dL Calcium 8.7 (8.6-10.3) mg/dL Total Bilirubin 0.50 (0.2-1.0) mg/dL AST 64 H (13-39) U/L ALT 30 (7-52) U/L Alkaline Phosphatase 65 (34-104) U/L Total Protein 6.9 (6.4-8.9) g/dL Albumin 4.4 (3.2-5.2) g/dL Globulin 2.5 (2-4) g/dL Albumin/Globulin Ratio 1.8 (1-3) TSH 1.71 (0.34-5.60) mcIU/mL Urine Color Urine Appearance Urine pH (5-9) Ur Specific [place] (1.010-1.030) Urine Protein (Negative) Urine Ketones (Negative) Urine Blood (Negative) Urine Nitrate (Negative) Urine Bilirubin (Negative) Urine Urobilinogen (Negative) Ur Leukocyte Esterase (Negative) Urine WBC (Auto) (Absent) Urine RBC (Auto) (Absent) Urine Bacteria (Absent) Hyaline Casts (Absent) Urine Glucose (Negative) Salicylates < 2.50 (<30) mg/dL Urine Opiates Screen (None Detect) Acetaminophen < 15 mcg/mL Ur Barbiturates Screen (None Detect) Ur Phencyclidine Scrn (None Detect) Ur Amphetamines Screen (None Detect) U Benzodiazepines Scrn (None Detect) Urine Cocaine Screen (None Detect) U Cannabinoids Screen (None Detect) Serum Alcohol < 10 (<10) mg/dL 11/27/16 11/27/16 11/27/16 Range/Units 12:08 15:15 15:15 WBC (3.5-10.8) 10^3/ul RBC (4.0-5.4) 10^6/ul Hgb (14.0-18.0) g/dl Hct (42-52) % MCV (80-94) fL MCH (27-31) pg MCHC (31-36) g/dl RDW (10.5-15) % Plt Count (150-450) 10^3/ul MPV (7.4-10.4) um3 Neut % (Auto) (38-83) % Lymph % (Auto) (25-47) % [place] % (Auto) (1-9) % Eos % (Auto) (0-6) % Baso % (Auto) (0-2) % Absolute Neuts (auto) (1.5-7.7) 10^3/ul Absolute Lymphs (auto) (1.0-4.8) 10^3/ul Absolute Monos (auto) (0-0.8) 10^3/ul Absolute Eos (auto) (0-0.6) 10^3/ul Absolute Basos (auto) (0-0.2) 10^3/ul Absolute Nucleated RBC 10^3/ul Nucleated RBC % Sodium 126 L (133-145) mmol/L Potassium 3.9 D (3.5-5.0) mmol/L Chloride 95 L (101-111) mmol/L Carbon Dioxide 25 (22-32) mmol/L Anion Gap 6 (2-11) mmol/L BUN 24 (6-24) mg/dL Creatinine 1.26 H (0.67-1.17) mg/dL Est GFR ( Amer) 80.0 (>60) Est GFR (Non-Af Amer) 62.2 (>60) BUN/Creatinine Ratio 19.0 (8-20) Glucose 238 H (70-100) mg/dL POC Glucose (mg/dL) (74-106) mg/dL Calcium 8.6 (8.6-10.3) mg/dL Total Bilirubin 0.50 (0.2-1.0) mg/dL AST 72 H (13-39) U/L ALT 29 (7-52) U/L Alkaline Phosphatase 61 (34-104) U/L Total Protein 6.5 (6.4-8.9) g/dL Albumin 4.0 (3.2-5.2) g/dL Globulin 2.5 (2-4) g/dL Albumin/Globulin Ratio 1.6 (1-3) TSH (0.34-5.60) mcIU/mL Urine Color Yellow Urine Appearance Clear Urine pH 6.0 (5-9) Ur Specific [place] 1.008 L (1.010-1.030) Urine Protein Negative (Negative) Urine Ketones 1+ H (Negative) Urine Blood 1+ H (Negative) Urine Nitrate Negative (Negative) Urine Bilirubin Negative (Negative) Urine Urobilinogen Negative (Negative) Ur Leukocyte Esterase Negative (Negative) Urine WBC (Auto) Trace(0-5/hpf) (Absent) Urine RBC (Auto) Trace(0-2/hpf) (Absent) Urine Bacteria Absent (Absent) Hyaline Casts Present H (Absent) Urine Glucose 3+(>=500 mg/dl) H (Negative) Salicylates (<30) mg/dL Urine Opiates Screen None detected (None Detect) Acetaminophen mcg/mL Ur Barbiturates Screen None detected (None Detect) Ur Phencyclidine Scrn None detected (None Detect) Ur Amphetamines Screen None detected (None Detect) U Benzodiazepines Scrn None detected (None Detect) Urine Cocaine Screen None detected (None Detect) U Cannabinoids Screen None detected (None Detect) Serum Alcohol (<10) mg/dL Microbiology and Other Data: Microbiology 11/29/16 13:05 CSF Gram Stain (Tube 3) - Final Cerebral Spinal Fluid CSF Culture - Preliminary No Growth Day 1 11/29/16 10:00 Influenza Types A,B Antigen (EPI) - Final Nasal Specimen received for Influenza A/B Molecular testing Assess/Plan/Problems-Billing Assessment: AMS in the setting of hyperglycemia, PAMELA in a 46 yo M with hx of DM, HLD, hypothyroidism, schizophrenia and brain trauma now with low grade fever - Patient Problems (1) Altered mental state Comment: EEG unremarkable yesterday on 11/29/15 , apart for generealized slowing. MS improving CSF + for increased protein and glu BCx pending. No clear infiltrate on CXR but some intersitial changes c/w edema, now on O2. ID worki up unremarknable:procalcitonin neg and flu swab neg. appreciate neur consult: RPR and HIV pending,will order MRI c spine in aM Holding psych medications. (2) PAMELA (acute kidney injury) Comment: Resolved with IVF (3) Hyperglycemia Comment: associated with hyperkalemia Resolved. Continue SSI and Lantus. (4) Hypothyroidism Comment: Continue synthroid. TSH 1.7 (5) Increased ammonia level Comment: mild at 66, cont Lactulose (6) Schizophrenia Comment: Holding psych meds (7) Urinary retention Comment: Vera replaced, on 11/29/16, will d/c now and eval post void residual today. (8) DVT prophylaxis Comment: HSQ
[2016-11-30] MEDS: Insulin GLARGINE(*) 1 UNITS UNIT SUBCUT SCH (21:39)
[2016-12-01] MEDS: Heparin VIAL(*) 5000 UNITS/ML VIAL (FIVE THOUSAND) SUBCUT SCH ×3 (05:02→20:57)
[2016-12-01 06:02] LABS: Hematocrit 27 % (42-52); Hemoglobin 9.4 g/dl (14.0-18.0); Mean Corpuscular HGB Conc 34 g/dl (31-36); Mean Corpuscular Hemoglobin 32 pg (27-31); Mean Corpuscular Volume 93 fL (80-94); Mean Platelet Volume 9 um3 (7.4-10.4); Red Blood Count 2.93 10^6/ul (4.0-5.4); Red Cell Distribution Width 13 % (10.5-15); White Blood Count 8.2 10^3/ul (3.5-10.8)
[2016-12-01 06:19] LABS: Albumin 3.2 g/dL (3.2-5.2); BUN/Creatinine Ratio 14.1 (8-20); C Reactive Protein 157.6 mg/L (< 5.00); Calcium 8.9 mg/dL (8.6-10.3); EGFR Non-African American 120.5 (>60); Globulin 2.7 g/dL (2-4); Potassium 3.9 mmol/L (3.5-5.0); Total Bilirubin 0.6 mg/dL (0.2-1.0); Total Protein 5.9 g/dL (6.4-8.9)
[2016-12-01] MEDS: Atorvastatin* 10 MG TAB PO SCH (08:37)
[2016-12-01] MEDS: PARoxetine HCL TAB* 20 MG PO SCH (08:38)
[2016-12-01] MEDS: Levothyroxine TAB* 50 MCG TAB PO SCH (08:39)
[2016-12-01] MEDS: LACTULOSE* 30 ML UDC PO SCH (08:39)
[2016-12-01] MEDS: Insulin LISPRO* 1 UNITS UNIT SUBCUT SCH ×3 (08:39→16:46)
[2016-12-01] MEDS: Aspirin EC Low Dose* 81 MG TAB.EC PO SCH (08:39)
--- NOTE | 2016-12-01 11:46 | PN ---
Progress Note - Progress Note SOAP: 46 year old RHM with TBI, ? schizophrenia, DM I (chronic neuropathy), admitted with altered mentation in context of PAMELA, hyperglycemia to 400s, hyponatremia, all corrected. Intermittently febrile but nl temps last 24hrs, no complaints, no clear source; ID involved and saw patient same time as I did. Vera removed yest and voided 300cc. He feels at baseline and has no complaints, similar to his appearance yesterday; notes polyuria at baseline but no incontinence. Not formally re examined Mri cervical spine reviewed and has small c4-5 dic bulge but no cord compression , tumor or abscess; mid sag images go as far caudally as mid thoracic spine Hct 27, na 133, chem ok, AST 58, crp inc to 158, bld cx neg Impression: 46 year old with TBI (left temp encephalomalacia; memory issues), ? schizophrenia (on ssri baseline), DM I with polyneuropathy clinically (distal weakness, atrophy, leg areflexia), presenting with resolved altered mental status in context of hyperglycemia, mult metabolic abnl. Etiology of intermittent fevers, increased CSF protein unclear to me, but no clear rostral spinal or brain source, appears clinically well, no WBC. No further neuro recs at this time.
[2016-12-01 11:49] LABS: Syphilis Index < 0.1 Index
--- NOTE | 2016-12-01 11:52 | RAD ---
HISTORY: Bilateral leg weakness COMPARISONS: Right TECHNIQUE: The following sequences were obtained of the cervical spine: Sagittal T1- and T2-weighted images, sagittal STIR images, axial T2 and gradient echo images. The patient deferred postcontrast imaging FINDINGS: Motion BRAIN AND SPINAL CORD: The visualized spinal cord is normal in caliber, position, and signal intensity. The visualized portion of the brain is unremarkable. The cerebellar tonsils are normal in position. ALIGNMENT: The alignment is normal. VERTEBRAL BODIES: There is mild anterolateral marginal osteophyte formation. There are mild Modic reactive end plate changes at C5-C6. JOINTS: There is diffuse uncovertebral and facet osteoarthritic change MUSCULATURE: Unremarkable INTERVERTEBRAL DISCS: There is diffuse loss of intervertebral disc height and T2 signal throughout the spine. AXIAL IMAGES: C2-C3: There is a broad-based disc osteophyte complex bilateral uncovertebral and facet hypertrophy. There is mild bilateral neural foraminal narrowing. There is no significant central canal stenosis. C3-C4: There is a broad-based disc osteophyte complex with bilateral uncovertebral and facet hypertrophy. There is severe bilateral neuroforaminal narrowing. There is moderate narrowing of the central canal. C4-C5: There is a broad-based disc osteophyte complex with bilateral uncovertebral and facet hypertrophy. There is severe bilateral neural foraminal narrowing. There is mild narrowing of the central canal. C5-C6: There is a broad-based disc osteophyte complex bilateral uncovertebral and facet hypertrophy. There is severe right and moderate left neural foraminal narrowing. There is mild narrowing of the central canal. C6-C7: There is left greater than right uncovertebral and facet hypertrophy. There is moderate left neural foraminal narrowing. There is no significant central canal stenosis. C7-T1: There is no disc herniation, spinal stenosis, or neuroforaminal narrowing. SOFT TISSUES: The visualized soft tissues of the neck are unremarkable. OTHER: None. IMPRESSION: 1. LIMITED STUDY. EVALUATION FOR ABSCESS IS LIMITED BY LACK OF INTRAVENOUS CONTRAST. WITHIN THE LIMITATIONS OF STUDY, THERE IS NO LOCULATED FLUID COLLECTION TO SUGGEST ABSCESS. 2. DEGENERATIVE DISC DISEASE AND OSTEOARTHRITIS. 3. THERE IS MODERATE NARROWING OF THE CENTRAL CANAL AT C3-C4 WITH MILD NARROWING AT C4-C5 AND C5-C6. 4. THERE IS MULTILEVEL NEURAL FORAMINAL NARROWING DESCRIBED ABOVE.
--- NOTE | 2016-12-01 12:59 | PN ---
Subjective Date of Service: 12/01/16 Interval History: Pt feels close to his baseline, although once again very vague historian Family History: Unchanged from Admission Social History: Unchanged from Admission Past Medical History: Unchanged from Admission Objective Active Medications: Acetaminophen (Tylenol Tab*) 650 mg PO Q4H PRN PRN Reason: FEVER/PAIN Last Admin: 11/30/16 05:30 Dose: 650 mg Aspirin (Aspirin Ec Low Dose*) 81 mg PO DAILY [facility] Last Admin: 12/01/16 08:39 Dose: 81 mg Atorvastatin Calcium (Lipitor*) 10 mg PO DAILY [facility] Last Admin: 12/01/16 08:37 Dose: 10 mg Clozapine (Clozapine Tab*) 100 mg PO BEDTIME [facility] Clozapine (Clozapine Tab*) 75 mg PO BEDTIME [facility] Dextrose (D50w Syringe 50 Ml*) 12.5 gm IV PUSH .FOR FS < 60 - SS PRN PRN Reason: FS < 60 Divalproex Sodium (Depakote Dr Tab(*)) 750 mg PO BID [facility] Heparin Sodium (Porcine) (Heparin Vial(*)) 5,000 units SUBCUT Q8HR [facility] Last Admin: 12/01/16 05:02 Dose: 5,000 units Insulin Glargine (Lantus(*)) 22 units SUBCUT BEDTIME [facility] Last Admin: 11/30/16 21:39 Dose: 22 unit Insulin Human Lispro (Humalog*) 0 units SUBCUT AC [facility] PRN Reason: Protocol Last Admin: 12/01/16 11:35 Dose: 3 units Iodixanol (Visipaque* 320 (Contrast)) 75 ml IV ONCE [facility] Stop: 12/01/16 18:05 Lactulose (Lactulose*) 30 ml PO BID [facility] Last Admin: 12/01/16 08:39 Dose: 30 ml Levothyroxine Sodium (Synthroid Tab*) 250 mcg PO DAILY [facility] Last Admin: 12/01/16 08:39 Dose: 250 mcg Ondansetron HCl (Zofran Inj*) 4 mg IV Q6H PRN PRN Reason: NAUSEA Paroxetine HCl (Paxil Tab*) 60 mg PO QAM [facility] Last Admin: 12/01/16 08:38 Dose: 60 mg Vital Signs 11/30/16 11/30/16 12/01/16 20:00 20:40 06:50 Temperature 98.4 F Pulse Rate 75 Respiratory 18 16 18 Rate Blood Pressure 121/80 (mmHg) O2 Sat by Pulse 97 Oximetry 12/01/16 07:58 Temperature 99.4 F Pulse Rate 64 Respiratory 16 Rate Blood Pressure 101/57 (mmHg) O2 Sat by Pulse 94 Oximetry Oxygen Devices in Use Now: None Appearance: 46 yo M in nAd, AAOx2 , poor historian Eyes: No Scleral Icterus, PERRLA Ears/Nose/Mouth/Throat: NL Teeth, Lips, Gums, Mucous Membranes Moist Neck: NL Appearance and Movements; NL JVP, Trachea Midline Respiratory: Symmetrical Chest Expansion and Respiratory Effort, Clear to Auscultation Cardiovascular: NL Sounds; No Murmurs; No JVD, RRR Abdominal: NL Sounds; No Tenderness; No Distention Lymphatic: No Cervical Adenopathy Extremities: No Edema, No Clubbing, Cyanosis Skin: No Rash or Ulcers, No Nodules or Sclerosis Neurological: Alert and Oriented x 3, - - minimally decreased motor strength in R leg Result Diagrams: 12/01/16 05:30 12/01/16 05:30 Additional Lab and Data: Lab Results 11/27/16 11/27/16 11/27/16 Range/Units 09:41 09:41 09:42 WBC 13.2 H (3.5-10.8) 10^3/ul RBC 3.85 L (4.0-5.4) 10^6/ul Hgb 12.1 L (14.0-18.0) g/dl Hct 36 L (42-52) % MCV 94 (80-94) fL MCH 31 (27-31) pg MCHC 34 (31-36) g/dl RDW 13 (10.5-15) % Plt Count 180 (150-450) 10^3/ul MPV 10 (7.4-10.4) um3 Neut % (Auto) 78.4 (38-83) % Lymph % (Auto) 10.3 L (25-47) % [place] % (Auto) 10.5 H (1-9) % Eos % (Auto) 0.1 (0-6) % Baso % (Auto) 0.7 (0-2) % Absolute Neuts (auto) 10.4 H (1.5-7.7) 10^3/ul Absolute Lymphs (auto) 1.4 (1.0-4.8) 10^3/ul Absolute Monos (auto) 1.4 H (0-0.8) 10^3/ul Absolute Eos (auto) 0 (0-0.6) 10^3/ul Absolute Basos (auto) 0.1 (0-0.2) 10^3/ul Absolute Nucleated RBC 0.01 10^3/ul Nucleated RBC % 0.1 Sodium 120 L (133-145) mmol/L Potassium 5.6 H (3.5-5.0) mmol/L Chloride 87 L (101-111) mmol/L Carbon Dioxide 22 (22-32) mmol/L Anion Gap 11 (2-11) mmol/L BUN 24 (6-24) mg/dL Creatinine 1.40 H (0.67-1.17) mg/dL Est GFR ( Amer) 70.8 (>60) Est GFR (Non-Af Amer) 55.1 (>60) BUN/Creatinine Ratio 17.1 (8-20) Glucose 458 H (70-100) mg/dL POC Glucose (mg/dL) > 444 H* (74-106) mg/dL Calcium 8.7 (8.6-10.3) mg/dL Total Bilirubin 0.50 (0.2-1.0) mg/dL AST 64 H (13-39) U/L ALT 30 (7-52) U/L Alkaline Phosphatase 65 (34-104) U/L Total Protein 6.9 (6.4-8.9) g/dL Albumin 4.4 (3.2-5.2) g/dL Globulin 2.5 (2-4) g/dL Albumin/Globulin Ratio 1.8 (1-3) TSH 1.71 (0.34-5.60) mcIU/mL Urine Color Urine Appearance Urine pH (5-9) Ur Specific [place] (1.010-1.030) Urine Protein (Negative) Urine Ketones (Negative) Urine Blood (Negative) Urine Nitrate (Negative) Urine Bilirubin (Negative) Urine Urobilinogen (Negative) Ur Leukocyte Esterase (Negative) Urine WBC (Auto) (Absent) Urine RBC (Auto) (Absent) Urine Bacteria (Absent) Hyaline Casts (Absent) Urine Glucose (Negative) Salicylates < 2.50 (<30) mg/dL Urine Opiates Screen (None Detect) Acetaminophen < 15 mcg/mL Ur Barbiturates Screen (None Detect) Ur Phencyclidine Scrn (None Detect) Ur Amphetamines Screen (None Detect) U Benzodiazepines Scrn (None Detect) Urine Cocaine Screen (None Detect) U Cannabinoids Screen (None Detect) Serum Alcohol < 10 (<10) mg/dL 11/27/16 11/27/16 11/27/16 Range/Units 12:08 15:15 15:15 WBC (3.5-10.8) 10^3/ul RBC (4.0-5.4) 10^6/ul Hgb (14.0-18.0) g/dl Hct (42-52) % MCV (80-94) fL MCH (27-31) pg MCHC (31-36) g/dl RDW (10.5-15) % Plt Count (150-450) 10^3/ul MPV (7.4-10.4) um3 Neut % (Auto) (38-83) % Lymph % (Auto) (25-47) % Barron % (Auto) (1-9) % Eos % (Auto) (0-6) % Baso % (Auto) (0-2) % Absolute Neuts (auto) (1.5-7.7) 10^3/ul Absolute Lymphs (auto) (1.0-4.8) 10^3/ul Absolute Monos (auto) (0-0.8) 10^3/ul Absolute Eos (auto) (0-0.6) 10^3/ul Absolute Basos (auto) (0-0.2) 10^3/ul Absolute Nucleated RBC 10^3/ul Nucleated RBC % Sodium 126 L (133-145) mmol/L Potassium 3.9 D (3.5-5.0) mmol/L Chloride 95 L (101-111) mmol/L Carbon Dioxide 25 (22-32) mmol/L Anion Gap 6 (2-11) mmol/L BUN 24 (6-24) mg/dL Creatinine 1.26 H (0.67-1.17) mg/dL Est GFR ( Amer) 80.0 (>60) Est GFR (Non-Af Amer) 62.2 (>60) BUN/Creatinine Ratio 19.0 (8-20) Glucose 238 H (70-100) mg/dL POC Glucose (mg/dL) (74-106) mg/dL Calcium 8.6 (8.6-10.3) mg/dL Total Bilirubin 0.50 (0.2-1.0) mg/dL AST 72 H (13-39) U/L ALT 29 (7-52) U/L Alkaline Phosphatase 61 (34-104) U/L Total Protein 6.5 (6.4-8.9) g/dL Albumin 4.0 (3.2-5.2) g/dL Globulin 2.5 (2-4) g/dL Albumin/Globulin Ratio 1.6 (1-3) TSH (0.34-5.60) mcIU/mL Urine Color Yellow Urine Appearance Clear Urine pH 6.0 (5-9) Ur Specific [place] 1.008 L (1.010-1.030) Urine Protein Negative (Negative) Urine Ketones 1+ H (Negative) Urine Blood 1+ H (Negative) Urine Nitrate Negative (Negative) Urine Bilirubin Negative (Negative) Urine Urobilinogen Negative (Negative) Ur Leukocyte Esterase Negative (Negative) Urine WBC (Auto) Trace(0-5/hpf) (Absent) Urine RBC (Auto) Trace(0-2/hpf) (Absent) Urine Bacteria Absent (Absent) Hyaline Casts Present H (Absent) Urine Glucose 3+(>=500 mg/dl) H (Negative) Salicylates (<30) mg/dL Urine Opiates Screen None detected (None Detect) Acetaminophen mcg/mL Ur Barbiturates Screen None detected (None Detect) Ur Phencyclidine Scrn None detected (None Detect) Ur Amphetamines Screen None detected (None Detect) U Benzodiazepines Scrn None detected (None Detect) Urine Cocaine Screen None detected (None Detect) U Cannabinoids Screen None detected (None Detect) Serum Alcohol (<10) mg/dL Microbiology and Other Data: Microbiology 11/29/16 13:05 CSF Gram Stain (Tube 3) - Final Cerebral Spinal Fluid CSF Culture - Preliminary No Growth Day 1 11/29/16 10:00 Influenza Types A,B Antigen (EPI) - Final Nasal Specimen received for Influenza A/B Molecular testing Assess/Plan/Problems-Billing Assessment: AMS in the setting of hyperglycemia, PAMELA in a 46 yo M with hx of DM, HLD, hypothyroidism, schizophrenia and brain trauma now with low grade fever - Patient Problems (1) Altered mental state Comment: EEG unremarkable on 11/29/15 , apart for generealized slowing. MS improved CSF + for increased protein and glu BCx NTD. No clear infiltrate on CXR but some intersitial changes c/w edema. Off 02. ID work up unremarknable:procalcitonin neg and flu swab neg. HIV neg appreciate neur consult: RPR neg. MRI c spine -no abscess, but pt did not tolerated it longer to be able to get a contrasted study Psych medications will be restarted today (2) PAMELA (acute kidney injury) Comment: Resolved with IVF (3) Hyperglycemia Comment: associated with hyperkalemia Resolved. Continue SSI and Lantus. (4) Hypothyroidism Comment: Continue synthroid. TSH 1.7 (5) Increased ammonia level Comment: mild at 66, cont Lactulose, will decrease to daily (6) Schizophrenia Comment: restarting Depakote and Clozaril. As per d/w RN at [place], pt's valproic level a day prior to admission was 40.5. (7) Urinary retention Comment: Vera replaced, on 11/29/16. Discontinued on 11/30/16. Post void residual pending (8) DVT prophylaxis Comment: HSQ Status and Disposition: Likely discharge tomorrow.
[2016-12-01] MEDS: Divalproex DR TAB(*) 250 MG PO SCH (20:56)
[2016-12-01] MEDS: Insulin GLARGINE(*) 1 UNITS UNIT SUBCUT SCH (20:57)
[2016-12-01] MEDS ORDERED: CloZAPine TAB* 100 MG TAB PO SCH (21:00)
[2016-12-01] MEDS ORDERED: CloZAPine TAB* 25 MG TAB PO SCH (21:00)
[2016-12-01] MEDS: Acetaminophen TAB* 325 MG PO PRN (21:39)
--- NOTE | 2016-12-01 23:43 | CONS ---
CONSULTATION REPORT: DATE OF CONSULT: 12/01/16 REQUESTING PHYSICIAN: Dr. Teran. CONSULTING SERVICE: Infectious Disease. IMPRESSION: 1. Encephalopathy, present on admission, resolved. Workup led to a spinal lumbar puncture showed elevated CSF protein. 2. 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 3. Hyperglycemia in the setting of insulin-dependent diabetes. 4. PENICILLIN allergy, caused hives. RECOMMENDATION: 1. Given that his mental status has returned to his baseline without any specific treatment of infection, I do not think there is an undiagnosed infection that requires further evaluation. He feels back to his baseline state. He is afebrile. His mild leukocytosis resolved. 2. The CSF protein abnormality is nonspecific in the setting of his hyperglycemia and traumatic brain injury, encephalomalacia. There may very well have been a component of viral infection, which is part of the explanation for his symptoms; however, again that his symptoms have resolved, I do not recommend further evaluation other than HIV antibody, which is pending. HISTORY OF PRESENT ILLNESS: This is a 46-year-old male with a history of traumatic brain injury, who resides at [facility], brought in with change in mental status. He cannot provide a history of those events, which was obtained aside from review of the medical record and discussion with Dr. Teran. Apparently, he remembers being in the [facility] and finding out that he had glucose in his urine and was found to be unresponsive at some point and brought to the ER with a blood sugar of 500 and a low-grade fever. He came on the . He had a brain CT, which showed encephalomalacia, a chest x-ray that showed right hemidiaphragm elevation, no acute changes. Cervical spine MRI was unrevealing. He had an EEG that showed diffuse slowing. He had blood cultures that were negative. Lumbar puncture showed 4 of white cells, glucose of 116, and protein of 150. CSF culture and Gram stain negative. Influenza and PCR negative. Urinalysis showed blood, white count was 13,000, which was down to 8000 today. CRP done today was 160. We do not have one from admission. His creatinine was 0.7. His AST is 58, down from 64. He denies any complaints and is not sure why he is here anymore. PAST MEDICAL HISTORY: 1. 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 2. Schizophrenia. 3. Type 1 diabetes. 4. Hypothyroidism. 5. Neuropathy. 6. Hyperlipidemia. MEDICATIONS: 1. Tylenol. 2. Aspirin. 3. Lipitor. 4. Heparin subcutaneous injection. 5. Insulin glargine. 6. Levothyroxine. 7. Paroxetine. ALLERGIES: PENICILLIN caused hives. FAMILY HISTORY: No recurrent infections. SOCIAL HISTORY: He lives at [facility]. No injection drugs. He is from [place]. No sick contacts that he knows of. REVIEW OF SYSTEMS: A full review of systems was negative except as noted above. PHYSICAL EXAM: Vital Signs: Temperature is 37, heart rate 60, respiratory rate 16, blood pressure 100/57, O2 sat 94% on room air. In general, he is awake and not in distress. Neurologic: He is oriented x3. Follows commands. Moves all extremities. Decreased sensation to light touch in the lower extremities bilaterally. HEENT: There is no conjunctival hemorrhage. Oropharynx without lesions. Neck is supple without nuchal rigidity. Lymph Nodes: There is no cervical, supraclavicular, inguinal, axillary, or epitrochlear lymphadenopathy. Heart is regular rate and rhythm without murmurs, rubs, or gallops. Lungs are clear to auscultation bilaterally. Abdomen: Soft , nontender, nondistended. There are bowel sounds present. Skin: There is no rash or splinter hemorrhages. Musculoskeletal: There is no spine tenderness to palpation or joint synovitis. DIAGNOSTIC STUDIES/LAB DATA: Creatinine 0.7, white blood cell count 8, hemoglobin 9, platelets 152. Influenza and PCR are negative. Please see impressions and recommendations as outlined above, which I have discussed with Dr. Teran and with Dr. Jordan. [id number]/[facility] #: [id number] [facility]
[2016-12-02] MEDS: Heparin VIAL(*) 5000 UNITS/ML VIAL (FIVE THOUSAND) SUBCUT SCH (05:55)
[2016-12-02] MEDS: Insulin LISPRO* 1 UNITS UNIT SUBCUT SCH ×2 (07:51→12:01)
[2016-12-02] MEDS ORDERED: LACTULOSE* 30 ML UDC PO SCH (09:00)
[2016-12-02 09:04] VITALS: BP 105/62
[2016-12-02] MEDS: Aspirin EC Low Dose* 81 MG TAB.EC PO SCH (09:22)
[2016-12-02] MEDS: Levothyroxine TAB* 50 MCG TAB PO SCH (09:23)
[2016-12-02] MEDS: Atorvastatin* 10 MG TAB PO SCH (09:23)
[2016-12-02] MEDS: Divalproex DR TAB(*) 250 MG PO SCH (09:23)
[2016-12-02] MEDS: PARoxetine HCL TAB* 20 MG PO SCH (09:24)
[2016-12-02 13:53] LABS: HSV 1 PCR, CSF Negative (Negative); HSV 2 PCR, CSF Negative (Negative)
--- NOTE | 2016-12-03 06:24 | TRS ---
TRANSFER SUMMARY: DATE OF ADMISSION: 11/28/16 DATE OF DISCHARGE AND TRANSFER BACK TO [place]: 12/02/16 PRIMARY CARE PROVIDER: Elaine Moura NP, from [place], [place]. DISCHARGE DIAGNOSES: 1. Toxic metabolic encephalopathy due to a combination of hyperglycemia and fever, most likely due to viral illness. 2. Hyperglycemia due to uncontrolled diabetes. 3. Acute renal failure due to dehydration, resolved. 4. Elevated ammonia level. SECONDARY DIAGNOSES: 1. History of traumatic brain injury as a child with subsequent encephalomalacia, noted on brain CT of the left temporal and parietal lobes. 2. History of schizophrenia. 3. History of unsteady gait. The patient at baseline uses a wheelchair and a walker. 4. History of intermittent urinary retention in the past. 5. History of diabetes, insulin dependent. 6. Hypothyroidism. 7. History of neuropathy. 8. Hyperlipidemia. 9. History of questionable seizures. MEDICATIONS AT DISCHARGE: Unchanged from admission and include: 1. Aspirin 81 mg daily. 2. Atorvastatin 10 mg daily. 3. Clozaril 175 mg at bedtime. 4. Depakote 750 mg b.i.d. 5. Gabapentin 600 mg b.i.d. 6. Insulin Lantus 22 units daily. 7. Lactulose 30 mL daily. 8. Synthroid 250 mcg daily. 9. Paxil 60 mg daily. 10. Januvia 50 mg daily. Please note that lactulose is a new medication for the patient. LABORATORY DATA AND STUDIES PERFORMED DURING THE HOSPITAL STAY: Includes: On 12/01/16: White blood cell count of 8.2, hemoglobin of 9.4, hematocrit of 27 , and platelets of 152. On 12/01/16: Sodium of 133, potassium 3.9, chloride 99, carbon dioxide 29, BUN 10, and creatinine 0.71. Liver function tests showed an AST of 58, ALT of 48, and alkaline phosphatase of 53. C-reactive protein was 157. The patient's hemoglobin A1c was 10.5 on 11/27/16. Influenza tests were negative. Syphilis IgG antibody was nonreactive. HIV1 and 2 antibodies are nonreactive. Urine drug screen was negative. Serum alcohol level was below 10. Acetaminophen and salicylate levels were below detectable. The patient had a spinal tap performed and the results obtained on 11/29/16 showed 4 white blood cells, 4 red blood cells, total neutrophils 25%, and lymphocytes of 66%. CSF glucose of 116 and total protein of 152. CSF HSV-PCR negative and herpes 2 DNR negative. CONSULTATIONS DURING THE HOSPITAL STAY: 1. Dr. Jordan from Neurology. 2. Dr. Munoz from Infectious Diseases. EEG obtained on 11/28/16, clinical impression: "Probably normal EEG with generalized slowing during sleep and occasionally brief periods of normal wakefulness. There are no epileptiform features to this recording. If an encephalopathy is a consideration, then repeat tracing when the patient is more awake and alert might be helpful." C-spine MRI obtained on 12/01/16, impression: "Limited study evaluation for abscess. There is limited bilateral IV contrast. Within the limitation of the study, there is no loculated fluid collection to suggest abscess. Degenerative disk disease and osteoarthritis. There is moderate narrowing of the central canal C3 and C4 with mild narrowing at C4 and C5, C5 and C6. There is multilevel neuroforaminal narrowing as described above." Brain CT obtained on 11/29/16, impression: Encephalomalacia in the left temporal and parietal lobes. No abnormal enhancement. Findings of chronic sinusitis. That was obtained with IV contrast. Abdomen x-ray on 11/29/16, impression: "Moderate retained stool." HOSPITALIZATION COURSE: Obdulio Bryant is a 46-year-old male with history of schizophrenia and traumatic brain injury, who is a prisoner at [facility]. He was brought to the hospital on 11/27/16 for lethargy. He was noted to be lethargic at [facility] and apparently was administered Narcan. From one source, it appears that the Narcan actually helped and the patient regained consciousness but from another source I have documentation that the Narcan actually did not bring any results. Nevertheless, the patient's mental status waxed and waned for the next 48 hours. His urine toxicology report was negative for any marked abnormalities. He had leukocytosis at admission with white blood cell count of 13,000. His sugar level was over 444, but there was no evidence of urine concentration on urinalysis. The patient was also not in DKA. The patient was febrile through initial 3 days of his hospital stay with last fever documented of 102.3 on 11/28/16. He did not receive any antibiotics empirically and he was observed. His blood cultures were negative. His influenza testing was negative. Eventually on 04/09, Dr. Quintero, the attending on the case at this point, performed a lumbar puncture. The CSF was reported as having high protein level and high glucose level, but otherwise was with low cell count and total white blood cell count of 4. EEG was also performed and as above mentioned was nonspecific. Overall, the patient's symptoms improved gradually with supportive treatment and continuation of treating his uncontrolled diabetes with insulin. Dr. Jordan saw the patient in Neurology consultation and recommended C-spine MRI with contrast to rule out epidural abscess. Unfortunately, when the MRI was performed, please note that at this point the patient was already back to his baseline neurologically. The patient did not tolerate being in the MRI machine long enough for the IV contrast to be administered. Nevertheless, the MRI images that were obtained did not show any significant fluid collections to suggest an abscess. I also consulted Dr. Munoz from Infectious Diseases. At this point, it appears that the patient's fevers were nonspecific maybe due to viral illness. Nevertheless, they resolved and the patient's mental status is back to normal now. He did not receive any antibiotics during his hospital stay. At this point, the suspicion is that the patient had toxic metabolic encephalopathy due to a known febrile illness, most likely viral. His hyperglycemia also contributed to his symptoms, although he was not in DKA. The patient also had acute renal failure with a creatinine of 1.4 at admission that resolved after intravenous hydration. The patient also was noted to have urinary retention that resolved after Vera was discontinued the day prior to discharge. On the day of discharge, the patient is still a vague historian, which is his baseline due to his traumatic brain injury. His memory is rather poor, but he is able to communicate and make his needs known. He is ready to go back to [facility]. Please also note that the patient's ammonia level was slightly elevated at 66 on 11/29/16. Due to that, the patient was placed on lactulose. Lactulose is going to be continued at discharge. PHYSICAL EXAMINATION AT THE TIME OF DISCHARGE: Vital Signs: Blood pressure of 105/62, heart rate of 93 and regular, respiratory rate 20, oxygen saturation 93 % on room air, and temperature of 100.2. General: The patient is a very pleasant 46-year-old male, vague historian. The patient is in no acute distress. He is awake and oriented x2. He does not know the exact date. HEENT: Head: Atraumatic, normocephalic. Eyes: Pupils equal, reactive to light and accommodation. Oropharynx clear. Mucosa moist. Neck: Supple. No JVD. No bruit bilaterally. Respiratory: Clear to auscultation bilaterally. Cardiovascular: Regular rate and rhythm. No murmur. Abdomen: Soft, nontender. Bowel sounds present in all 4 quadrants. Extremities: There is no edema. Pulses present 2+ bilaterally. No clubbing or cyanosis. Neuro Evaluation: Somewhat difficult to obtain, but the patient appears to have chronic flattening of right nasolabial fold. The patient also has very mild weakness in the right lower extremity, which as per the patient is chronic. The patient's speech is clear. Please note that this is a short summary of the patient's hospital stay. Please refer to further medical records for details. TIME SPENT: Approximately 45 minutes was spent on the patient's discharge. CC: Elaine Moura NP* [id number]/[facility] #: [id number] TERR[facility]
== END 2016-12-02 13:02 | DRG 52 ==
LOC: ED 09:17 → EEVIPCON 09:17 → MEDTELE 16:06 → OBSVTOIN 11-28 14:59
PROVIDERS: ADMIT Internal Medicine; ATTEND Internal Medicine
PROC: 009U3ZX Drainage of Spinal Canal, Percutaneous Approach, Diagnostic (ICD-10-PCS; principal; 2016-11-29)
DX: G92 Toxic encephalopathy (principal); N17.9 Acute kidney failure, unspecified; E10.40 Type 1 diabetes mellitus with diabetic neuropathy, unspecified; E10.65 Type 1 diabetes mellitus with hyperglycemia; E87.1 Hypo-osmolality and hyponatremia; B34.9 Viral infection, unspecified; E86.0 Dehydration; G93.89 Other specified disorders of brain; F20.9 Schizophrenia, unspecified; E03.9 Hypothyroidism, unspecified; E78.5 Hyperlipidemia, unspecified; R33.9 Retention of urine, unspecified; F17.210 Nicotine dependence, cigarettes, uncomplicated; D72.829 Elevated white blood cell count, unspecified; E87.5 Hyperkalemia; Z87.820 Personal history of traumatic brain injury; Z99.3 Dependence on wheelchair; Z88.0 Allergy status to penicillin; Z79.82 Long term (current) use of aspirin; Z79.899 Other long term (current) drug therapy; Z79.4 Long term (current) use of insulin
CPT/HCPCS: 36415; 36600; 70450; 70460; 71010; 71020; 72141; 74000; 80048; 80053; 80307; 80320; 80329; 81003; 81015; 82140; 82607; 82746; 82803; 82945; 83036; 84145; 84157; 84443; 84484; 85025; 85610; 86140; 86592; 86703; 87040; 87070; 87205; 87502; 87529; 89051; 93005; 93306; 95819; 96361; 96374; 99285; 99406; A9270-GY; G0378; G0480; J1644; Q9967